=== PATIENT | female | born 1975 | race Caucasian/White ===

== ENCOUNTER 2018-07-24 13:22 | Emergency (ER) | payer MEDICAID, SELFPAY ==
[2018-07-24 13:30] VITALS: BP 115/74; PULSE 70; RESP 18; TEMP 36.7; O2SAT 98
--- NOTE | 2018-07-24 13:58 | ED.GENADUL_ITS ---
Discharge Plan Disposition Patient Disposition: HOME Condition: Good Discharge Details Chief Complaint: ChemExpose Clinical Impression: Impetigo, Atopic dermatitis Primary Care Provider: London Gordon ED Provider: Nathanael Peters Home Meds and New Rx's Prescriptions: New cephalexin [Keflex] 250 mg capsule 250 mg PO QID 7 Days Qty: 28 RF: 0 mupirocin calcium 2 % cream 1 applic TP TID Qty: 15 RF: 0 No Action multivitamin 1 EACH capsule 1 mg PO DAILY RF: 0 omega-3 fatty acids-fish oil [Fish Oil] 1 EACH capsule 2 cap PO DAILY RF: 0 nicotine [Nicoderm CQ] 1 EACH patch 24 hour 1 ea Transdermal PRN PRNRF: 0 hydroxyzine pamoate [Vistaril] 50 MG capsule 50 mg PO TID PRNQty: 20 RF: 0 hydrocortisone 30 GM cream 1 gm Topical BID PRNQty: 1 RF: 0 levonorgestrel [Mirena] 1 EACH intrauterine device 1 ea IU DIRECTED RF: 0 Discharge Instructions Instructions: Impetigo (ED), Dermatitis (ED) Additional Instructions: Please take the antibiotic as directed. Please hold off on the fluids soaks with essential oils for the time being. Please use the mupirocin cream 3-4 times daily, after improvement of your symptoms in 5-7 days please start using the steroid cream again. Please contact Dr. Schilling, for close dermatology follow-up. If you notice any redness, swelling, worsening of your pain, systemic symptoms of fever or chills, please return immediately for reevaluation. Referrals: London Gordon [Primary Care Provider] - Medical Decision Making This is a 42-year-old female with a long history of atopic dermatitis for the past few years with previous exacerbations, this most recent one has been going on for the last 5 months, patient has been soaking her affected digits in a combination of essential oils and warm water on a daily basis. She was prescribed hydrocortisone but only used this for 1 application. Over the last 24-48 hours she has noticed mild yellow crusting and yellow discharge. Physical exam demonstrates signs and symptoms concerning for mild impetigo, as a superinfection to her chronic atopic dermatitis. No signs of systemic infection, vital signs are stable, no fever. No signs of tendon involvement with no pain with passive flexion or extension. No evidence of abscess on exam. At this point will start the patient on mupirocin cream as well as Keflex for home use. After resolution of the infection-like symptoms we will recommend that she starts the steroid cream again. We will recommend dermatology follow-up with Dr. Schilling whom she has seen in the past. We discussed red flags which to return. I have extensively reviewed the treatment plan and discharge instructions with the patient. I have addressed all patient concerns at this time. The patient was made aware of what symptoms to monitor for that would warrant a return to the emergency department. Discussed the plan with the patient, they demonstrate verbal understanding and agreement with our assessment and plan at this time. HPI General Date/Time Provider Initiated Documentation: 07/24/18 13:25 . HPI Narrative: This is a 42-year-old female with no past medical history except for history of atopic dermatitis which she has had for years. She gets recurrent exacerbations on her right index finger and her left thumb every few years, she has been dealing with a recent exacerbation for the last few months, she was prescribed hydrocortisone by her PCP however she has not been using this and instead she has been using essential oils and soaks, she has been using tea tree oil, Rosie oil, doing daily soaks with these mixtures. She has not been noticing significant improvement, she did try using the steroid cream once for a single application but noticed no resolution of her symptoms. Over the last 24-48 hours she has noticed some mild yellow weeping and yellow crusting. Because of this she came in for further evaluation. She denies any systemic symptoms, any traveling of the rash of her hands or arms. She denies any bleeding,, fevers, chills, chest pain or shortness of breath. She denies any other contact allergens. She has no other complaints at this time. She denies any recent surgeries, she denies any pertinent family history. Related Data Home Medications Medication Instructions Recorded Confirmed multivitamin 1 mg PO DAILY 10/20/14 09/26/16 omega-3 fatty acids-fish oil [Fish 2 cap PO DAILY 10/20/14 09/26/16 Oil 1,000 mg Capsule] hydrocortisone 1 gm TOPICAL BID PRN #1 tube 04/06/15 09/26/16 hydroxyzine pamoate [Vistaril] 50 mg PO TID PRN #20 capsule 04/06/15 09/26/16 nicotine [Nicoderm Cq] 1 ea TRANSDERMAL PRN PRN 04/06/15 09/26/16 levonorgestrel [Mirena] 1 ea IU DIRECTED 06/18/16 09/26/16 cephalexin [Keflex] 250 mg PO QID 7 Days #28 cap 07/24/18 mupirocin calcium 1 applic TP TID #15 gm 07/24/18 Previous Rx's Medication Instructions Recorded hydrocortisone 1 gm TOPICAL BID PRN #1 tube 04/06/15 hydroxyzine pamoate [Vistaril] 50 mg PO TID PRN #20 capsule 04/06/15 cephalexin [Keflex] 250 mg PO QID 7 Days #28 cap 07/24/18 mupirocin calcium 1 applic TP TID #15 gm 07/24/18 Allergies Allergy/AdvReac Type Severity Reaction Status Date / Time No Known Allergies Allergy Unverified 09/26/16 19:59 General Stated Complaint: ChemExpose PIETRO: 4 Review of Systems Review of Systems All systems reviewed & are unremarkable except as noted in HPI and below PFSH Social History Smoking/Tobacco Use Status: Current every day Exam Narrative Exam Narrative: 1.Const: Well-nourished, Well-developed, appearing stated age 2.Eyes: PERRL, no conjunctival injection, and symmetrical lids. 3.ENT: Atraumatic external nose and ears. Moist MM. Neck: Symmetric, trachea midline, No thyromegaly. 4.CVS: +S1/S2, No murmurs or gallops. Peripheral pulses 2+ and equal in all extremities. Brisk capillary refill in all extremities. 5.RESP: Unlabored respiratory effort. Clear to auscultation bilaterally. No wheezes rales or rhonchi 6.GI: Soft, Nontender/Nondistended, No hepatosplenomegaly. No guarding or rebound. 7.MSK: Normocephalic/Atraumatic, Extremities w/o deformity or ttp No cyanosis or clubbing, Normal movement of all extremities 8.Skin: Patient demonstrates blotchy erythema, yellow crusting, minimal swelling over her index finger on the right hand, of the left head. No active bleeding. No significant pain with palpation. No evidence with passive extension or flexion of the fingers or thumbs. No purulent discharge, no fluctuance significant for an abscess. No other significant abnormalities peer 9.Neuro: cannon crewmember II-XII grossly intact. Sensation grossly intact, no focal neurologic deficits. 10.Psych: (AAO) x3. Appropriate mood and affect Course Vital Signs Temperature 36.7 C 07/24/18 13:30 Pulse 70 07/24/18 13:30 Respiratory Rate 18 07/24/18 13:30 Blood Pressure 115/74 07/24/18 13:30 Pulse Oximetry 98 07/24/18 13:30 Temperature 36.7 C 07/24/18 13:30 Temperature Source Temporal Artery Scan 07/24/18 13:30 Pulse 70 07/24/18 13:30 Respiratory Rate 18 07/24/18 13:30 Respiratory Effort 07/24/18 13:34 Respiratory Depth Normal 07/24/18 13:34 Respiratory Pattern Normal 07/24/18 13:34 Blood Pressure 115/74 07/24/18 13:30 Blood Pressure Position Sitting 07/24/18 13:30 Pulse Oximetry 98 07/24/18 13:30 Oxygen Delivery Method Room Air 07/24/18 13:30 Oxygen Flow Rate 0 07/24/18 13:30 Pain Level 5 07/24/18 13:30
[2018-07-24 14:06] VITALS: BP 133/80; PULSE 72; RESP 18; TEMP 36.8; O2SAT 99
--- NOTE | 2018-07-26 08:25 | PDOC.ERCMPRO ---
Care Management Progress Note 07/26-Dr. Peters requested assistance with a Dr. Schilling f/u (B[employer]ers Installer) as soon as possible. Called Dr. Schilling's office and spoke with Sarah. Sarah has scheduled Jovita for 945 this morning and has asked that the provider note be faxed to [phone] for which it was faxed. Called Jovita back to confirm and she stated she would be there at 0922.
--- NOTE | 2018-07-26 08:28 | CMPROGNOTE_ITS ---
Care Management Progress Note 07/26-Dr. Peters requested assistance with a Dr. Schilling f/u (Oil Dispatcher) as soon as possible. Called Dr. Schilling's office and spoke with Sarah. Sarah has scheduled Jovita for 945 this morning and has asked that the provider note be faxed to [phone] for which it was faxed. Called Jovita back to confirm and she stated she would be there at 0947.
== END 2018-07-24 14:07 | disposition home or self-care (01) ==
LOC: ER 14:12
PROVIDERS: Emergency Provider Student in an Organized Health Care Education/Training Program; PCP Internal Medicine
DX: L01.00 Impetigo, unspecified (principal); L20.9 Atopic dermatitis, unspecified
CPT/HCPCS: 99283

== ENCOUNTER 2018-12-01 11:15 | Emergency (ER) | payer MEDICAID, SELFPAY ==
[2018-12-01 11:20] VITALS: BP 126/73; PULSE 74; RESP 16; TEMP 36.8; O2SAT 99
--- NOTE | 2018-12-01 12:05 | DI.RAD_ITS ---
SYMPTOMS/DIAGNOSIS: COUGH PA AND LATERAL CHEST: Comparison 06/18/16. The heart is normal in size. The lungs are clear. The mediastinal structures and pleura appear intact. CONCLUSION: Normal chest.
--- NOTE | 2018-12-01 13:08 | ED.GENADUL_ITS ---
Discharge Plan Disposition Patient Disposition: HOME Condition: Stable Discharge Details Chief Complaint: RespSymp Clinical Impression: Cough Primary Care Provider: London Gordon ED Provider: Gerda Schrader Home Meds and New Rx's Prescriptions: Continued multivitamin 1 EACH capsule 1 mg PO DAILY RF: 0 omega-3 fatty acids-fish oil [Fish Oil] 1 EACH capsule 2 cap PO DAILY RF: 0 Mirena 1 EACH intrauterine device 1 ea IU DIRECTED RF: 0 mupirocin calcium 2 % cream 1 applic TP TID Qty: 15 RF: 0 Probiotic 100 billion cell Capsule 1 cap PO DAILY RF: 0 Discharge Instructions Instructions: Upper Respiratory Infection (ED), Acute Cough (ED) Additional Instructions: Please return immediately to the emergency department if you develop any new or worsening symptoms or if you become otherwise concerned. It is extremely important that you make an appointment to be seen in follow-up for this visit as soon as possible by your primary care doctor. Referrals: London Gordon [Primary Care Provider] - Discharge Data Discharge Date/Time-TO BE ENTERED AT DEPARTURE: 12/01/18 13:35 Medical Decision Making Jovita Dawson is a 43 yo woman with h/o kidney stones who presents emergency department with 1 week of productive cough, generalized body aches, nasal congestion. On exam patient is very well and nontoxic appearing. Eyes are clear. Concern for influenza versus pneumonia versus other viral respiratory infection. Exam/history is not consistent with meningitis, sepsis, toxic/metabolic process, other acute emergent life-threatening process. Plan for chest x-ray, flu swab. Flu swab and chest x-ray negative. Likely viral respiratory illness. No indication for further evaluation at this time. I had a lengthy discussion with the patient regarding home care, return to emergency department cautions, and importance of outpatient follow-up with PCP as soon as possible. She verbalized understanding plan was amenable. Medical Records Medical records reviewed: Yes I reviewed the patient's medical records. Imaging Data Radiologic Study: Attestation: I personally reviewed and interpreted this imaging study as follows: Radiologist's impression: PA AND LATERAL CHEST: Comparison 06/18/16. The heart is normal in size. The lungs are clear. The mediastinal structures and pleura appear intact. CONCLUSION: Normal chest. Lab Data Lab results reviewed: Yes I reviewed the patient's lab results. HPI General Mode of arrival: ambulatory . Date/Time Provider Initiated Documentation: 12/01/18 12:05 . Limitations to Documentation: no limitations . Information obtained by: patient, RN notes reviewed and old records reviewed . HPI Narrative: Jovita Dawson is a 43 y/o woman with h/o past presenting to the emergency department with cough. Patient reports that for the past week she has had cough productive of yellow sputum. She has also had intermittent generalized body aches, headaches, and nausea. Subjective fevers and nasal congestion. She has had no vomiting or diarrhea. Patient denies any current pain. She reports that she feels overall well and has been able to go about her usual activities, although has felt a little more rundown than usual in the past week. Has been eating and drinking as usual. Triage note states shortness of breath symptom, when questioned patient reports that she only feels more short of breath while coughing. Related Data Home Medications Medication Instructions Recorded Confirmed multivitamin 1 mg PO DAILY 10/20/14 12/13/18 omega-3 fatty acids-fish oil [Fish 2 cap PO DAILY 10/20/14 12/13/18 Oil] Mirena 1 ea IU DIRECTED 06/18/16 12/13/18 mupirocin calcium 1 applic TP TID #15 gm 07/24/18 12/13/18 Probiotic 1 cap PO DAILY 12/01/18 12/13/18 Previous Rx's Medication Instructions Recorded mupirocin calcium 1 applic TP TID #15 gm 07/24/18 Allergies Allergy/AdvReac Type Severity Reaction Status Date / Time No Known Allergies Allergy Unverified 12/13/18 19:29 General Stated Complaint: RespSymp PIETRO: 3 Review of Systems Review of Systems Constitutional: Reports subjective fevers Eyes: denies eye pain ENT: denies facial pain, dental pain, sore throat, reports nasal congestion Cardiovascular: denies chest pain, edema Respiratory: denies SOB, reports cough GI: denies abdominal pain, vomiting, diarrhea, reports nausea : denies flank pain MSK: denies back pain, neck pain, reports generalized body aches Skin: denies rash Neuro: denies numbness, weakness, reports intermittent headache not currently occurring PFSH Surgical History History of bunionectomy (Acute) Social History Smoking/Tobacco Use Status: Current every day Tobacco Type: cigarettes Smoking cigarettes per day: 10 Alcohol Intake: current Alcohol Intake frequency: a few times a month Drug use: Never Substance use type: does not use Do you feel safe at home: Yes Do you feel safe in your relationship?: Yes Exam Narrative Exam Narrative: Constitutional: well and [id number], pleasant, conversing normally HENT: head atraumatic/normocephalic/normal inspection, mucous membranes moist Eyes: conjunctiva normal, sclera normal, pupils 3mm b/l Neck: no stridor, normal ROM, trachea midline Chest: normal inspection Resp: normal work of breathing, LCTAB Cardio: normal rate, normal rhythm, no murmur appreciated Back: normal inspection, no rash Skin: warm, dry, normal color, no rash Neuro: alert, not altered, grossly non-focal, normal tone Ext: no edema, no posterior calf tenderness to palpation Psych: normal mood, normal affect, normal behavior Course Vital Signs Temperature 36.8 C 12/01/18 11:20 Pulse 74 12/01/18 11:20 Respiratory Rate 16 12/01/18 11:20 Blood Pressure 126/73 12/01/18 11:20 Pulse Oximetry 99 12/01/18 11:20 Temperature 36.8 C 12/01/18 11:20 Temperature Source Tympanic 12/01/18 11:20 Pulse 74 12/01/18 11:20 Respiratory Rate 16 12/01/18 11:20 Respiratory Effort Non-Labored 12/01/18 11:26 Respiratory Depth Normal 12/01/18 11:26 Blood Pressure 126/73 12/01/18 11:20 Blood Pressure Position Sitting 12/01/18 11:20 Pulse Oximetry 99 12/01/18 11:20 Oxygen Delivery Method Room Air 12/01/18 11:20 Oxygen Flow Rate 0 12/01/18 11:20 Pain Level 0 12/01/18 11:20 Lab/Test Results Lab/Test Results: 12/01/18 12:35 Nasopharynx Influenza Types A,B Antigen - Final
== END 2018-12-01 13:35 | disposition home or self-care (01) ==
PROVIDERS: Emergency Provider Student in an Organized Health Care Education/Training Program; PCP Internal Medicine
DX: J06.9 Acute upper respiratory infection, unspecified (principal); R05 Cough; F17.210 Nicotine dependence, cigarettes, uncomplicated
CPT/HCPCS: 87449; 99283; 71046

== ENCOUNTER 2018-12-13 19:14 | Emergency (ER) | payer MEDICAID, SELFPAY ==
[2018-12-13 19:24] VITALS: BP 111/70; PULSE 87; RESP 16; TEMP 36.8; O2SAT 98
[2018-12-13 19:42] LABS: Bilirubin Negative (Negative); Blood Large (Negative); Clarity Clear; Glucose Negative (Negative); Ketones Negative (Negative); Leukocyte Esterase Negative (Negative); Nitrite Negative (Negative); Urobilinogen 0.2 EU/dL (Up TO 0.2)
[2018-12-13 19:54] LABS: Bacteria Few HPF (Negative); C & S Indicated? No; Casts Negative LPF (Negative); Crystals Negative HPF (Negative); Epithelial Cells Rare HPF (Negative); Mucus Negative (Negative); Other Cells Negative (Negative); RBC >50 (0-2); WBC 0-2 HPF (0-5)
--- NOTE | 2018-12-13 19:57 | W.ED.GENAD ---
Discharge Plan Disposition Patient Disposition: OTHER Discharge Details Chief Complaint: Urinary Clinical Impression: Patient left without being seen Primary Care Provider: London Gordon ED Provider: Lorenzo Brown Home Meds and New Rx's Prescriptions: No Action multivitamin 1 EACH capsule 1 mg PO DAILY RF: 0 omega-3 fatty acids-fish oil [Fish Oil] 1 EACH capsule 2 cap PO DAILY RF: 0 Mirena 1 EACH intrauterine device 1 ea IU DIRECTED RF: 0 mupirocin calcium 2 % cream 1 applic TP TID Qty: 15 RF: 0 Probiotic 100 billion cell Capsule 1 cap PO DAILY RF: 0 Medical Decision Making Patient had urinalysis ordered as part of triage process. No evidence of infection. Patient has stated to staff that she felt a kidney stone in the past and she wished to leave prior to being evaluated. Lab Data Lab results reviewed: Yes I reviewed the patient's lab results. Laboratory Results - last 24 hr 12/13/18 19:35 Urine Color Yellow Urine Clarity Clear Urine pH 6.0 Ur Specific [place] 1.010 Urine Protein Negative Urine Ketones Negative Urine Blood Large H Urine Nitrite Negative Urine Bilirubin Negative Urine Urobilinogen 0.2 Ur Leukocyte Esterase Negative Urine RBC >50 H Urine WBC 0-2 Ur Epithelial Cells Rare Urine Crystals Negative Urine Bacteria Few Urine Casts Negative Urine Mucus Negative Urine Other Negative Ur Culture Indicated? No Urine Glucose Negative HPI General Date/Time Provider Initiated Documentation: 12/13/18 19:30. Related Data Home Medications Medication Instructions Recorded Confirmed multivitamin 1 mg PO DAILY 10/20/14 12/13/18 omega-3 fatty acids-fish oil [Fish 2 cap PO DAILY 10/20/14 12/13/18 Oil] Mirena 1 ea IU DIRECTED 06/18/16 12/13/18 mupirocin calcium 1 applic TP TID #15 gm 07/24/18 12/13/18 Probiotic 1 cap PO DAILY 12/01/18 12/13/18 Previous Rx's Medication Instructions Recorded mupirocin calcium 1 applic TP TID #15 gm 07/24/18 Allergies Allergy/AdvReac Type Severity Reaction Status Date / Time No Known Allergies Allergy Unverified 12/13/18 19:29 General Stated Complaint: Urinary PIETRO: 3 PFSH Surgical History History of bunionectomy (Acute) Social History Smoking/Tobacco Use Status: Current every day Tobacco Type: cigarettes Smoking cigarettes per day: 10 Alcohol Intake: current Alcohol Intake frequency: a few times a month Drug use: Never Substance use type: does not use Do you feel safe at home: Yes Do you feel safe in your relationship?: Yes Course Vital Signs Temperature 36.8 C 12/13/18 19:24 Pulse 87 12/13/18 19:24 Respiratory Rate 16 12/13/18 19:24 Blood Pressure 111/70 12/13/18 19:24 Pulse Oximetry 98 12/13/18 19:24 Temperature 36.8 C 12/13/18 19:24 Temperature Source Skin 12/13/18 19:24 Pulse 87 12/13/18 19:24 Respiratory Rate 16 12/13/18 19:24 Respiratory Effort Non-Labored 12/13/18 19:29 Blood Pressure 111/70 12/13/18 19:24 Blood Pressure Position Standing 12/13/18 19:24 Pulse Oximetry 98 12/13/18 19:24 Oxygen Delivery Method Room Air 12/13/18 19:24 Oxygen Flow Rate 0 12/13/18 19:24 Pain Level 5 12/13/18 19:24 Lab/Test Results Lab/Test Results: Laboratory Tests Range/Units 12/13/18 19:35 Urine Color (Yellow) Yellow Urine Clarity Clear Urine pH (5-8) 6.0 Ur Specific [place] (1.005-1.025) 1.010 Urine Protein (Negative) mg/dL Negative Urine Ketones (Negative) mg/dL Negative Urine Blood (Negative) Large H Urine Nitrite (Negative) Negative Urine Bilirubin (Negative) Negative Urine Urobilinogen (Up TO 0.2) EU/dL 0.2 Ur Leukocyte Esterase (Negative) Negative Urine RBC (0-2) >50 H Urine WBC (0-5) HPF 0-2 Ur Epithelial Cells (Negative) HPF Rare Urine Crystals (Negative) HPF Negative Urine Bacteria (Negative) HPF Few Urine Casts (Negative) LPF Negative Urine Mucus (Negative) Negative Urine Other (Negative) Negative Ur Culture Indicated? No Urine Glucose (Negative) mg/dL Negative
== END 2018-12-13 19:50 | disposition other institution (70) ==
PROVIDERS: Emergency Provider Emergency Medicine; PCP Internal Medicine
DX: Z53.21 Procedure and treatment not carried out due to patient leaving prior to being seen by health care provider (principal)
CPT/HCPCS: 81003; 81015

== ENCOUNTER 2019-04-02 19:14 | Emergency (ER) | payer MEDICAID, SELFPAY ==
[2019-04-02 19:18] VITALS: BP 111/68; PULSE 89; RESP 20; TEMP 36.6; O2SAT 96
--- NOTE | 2019-04-02 19:30 | W.ED.GENAD ---
Discharge Plan Disposition Patient Disposition: HOME Condition: Stable Discharge Details Chief Complaint: Sorethroat Clinical Impression: Pharyngitis, Viral URI Primary Care Provider: London Gordon ED Provider: Kinga Ovalle Home Meds and New Rx's Prescriptions: Continued multivitamin 1 EACH capsule 1 mg PO DAILY RF: 0 omega-3 fatty acids-fish oil [Fish Oil] 1 EACH capsule 2 cap PO DAILY RF: 0 Mirena 1 EACH intrauterine device 1 ea IU DIRECTED RF: 0 mupirocin calcium 2 % cream 1 applic TP TID Qty: 15 RF: 0 Probiotic 100 billion cell Capsule 1 cap PO DAILY RF: 0 Discharge Instructions Instructions: Pharyngitis (ED), Upper Respiratory Infection (ED) Additional Instructions: Drink plenty of fluids and get plenty of rest. Gargle with salt water several times daily. You can also use cough drops and Chloraseptic throat spray to help with pain. Alternate Tylenol and Motrin as needed directed for pain. Follow-up with your primary care doctor next week for reevaluation as needed. Return to the emergency department if you develop any worsening or new concerning symptoms. Discharge Data Discharge Date/Time-TO BE ENTERED AT DEPARTURE: 04/02/19 19:49 Discharge Physician: Kinga Ovalle Medical Decision Making 43-year-old female who presents the ED with complaint of sore throat for the past 5 days. Recent sick contact with strep. States she mainly came here to be tested for strep. Vitals within normal limits. Patient appears nontoxic. Normal ENT exam. Normal oropharynx. No peritonsillar abscess. Uvula midline. No trismus, drooling, lymphadenopathy. Rapid strep negative. Presentation appears consistent with viral pharyngitis. Also discussed with patient that sore throat can also be the result of postnasal drip from seasonal allergies. Discussed that if her symptoms do not improve or worsen, to follow-up with her primary care doctor or return to the emergency department HPI General Mode of arrival: ambulatory. Date/Time Provider Initiated Documentation: 04/02/19 19:30. Limitations to Documentation: no limitations. Information obtained by: patient. HPI Narrative: Patient is a 43-year-old female who presents with sore throat for the past 5 days. She states she also feels that she has swollen glands which hurt with swallowing. She states she has a coworker who was recently diagnosed with strep throat and she wanted to be checked for this. She admits to occasional cough sometimes productive of green sputum. She denies any fever. She states she has been eating and drinking normally. She denies any headache, neck pain, chest pain, shortness of breath, abdominal pain, vomiting or diarrhea. Related Data Home Medications Medication Instructions Recorded Confirmed multivitamin 1 mg PO DAILY 10/20/14 12/13/18 omega-3 fatty acids-fish oil [Fish 2 cap PO DAILY 10/20/14 12/13/18 Oil] Mirena 1 ea IU DIRECTED 06/18/16 12/13/18 mupirocin calcium 1 applic TP TID #15 gm 07/24/18 12/13/18 Probiotic 1 cap PO DAILY 12/01/18 12/13/18 Previous Rx's Medication Instructions Recorded mupirocin calcium 1 applic TP TID #15 gm 07/24/18 Allergies Allergy/AdvReac Type Severity Reaction Status Date / Time No Known Allergies Allergy Unverified 04/02/19 19:22 General Stated Complaint: Sorethroat PIETRO: 4 Review of Systems Review of Systems All systems reviewed & are unremarkable except as noted in HPI and below Constitutional Reports as per HPI, Denies chills and Denies fever(s) Eyes Denies blurry vision ENT Denies dizziness, Reports sore throat and Denies throat swelling Cardiovascular Denies chest pain and Denies dyspnea Respiratory Reports cough and Denies dyspnea Gastrointestinal Denies abdominal pain, Denies diarrhea and Denies vomiting Genitourinary Denies hematuria and Denies dysuria Musculoskeletal Denies back pain and Denies numbness Integumentary/Breasts Denies lesions and Denies rash Neurologic Denies dizziness, Denies focal weakness and Denies numbness Allergic/Immunologic Denies throat swelling [facility] Medical History Degenerative disc disease, cervical (Acute) Kidney stones (Chronic) Surgical History History of bilateral tubal ligation (Acute) History of bunionectomy (Acute) Social History Smoking/Tobacco Use Status: Current every day Tobacco Type: cigarettes Alcohol Intake: current Alcohol Intake frequency: a few times a month Drug use: Never Substance use type: does not use Do you feel safe at home: Yes Do you feel safe in your relationship?: Yes Exam Const General: cooperative and healthy appearing Orientation: alert and awake HENCO Head: normal to inspection Ears: hearing grossly normal bilaterally, external ears normal and TM's normal bilaterally General nose exam: external nose normal Face and sinus: normal facial exam Mouth: oral mucosae normal Teeth and gingiva: dentition normal Throat: posterior oropharynx normal Eyes General: appearance normal, both eyes and all related structures Eyelids: eyelids normal Pupils: PERRL EOM: EOM intact bilaterally Neck Neck: normal visual inspection Lymphatic: no lymphadenopathy noted Chest Chest: normal inspection of the chest Resp Effort & Inspection: normal respiratory effort and able to speak in complete sentences Auscultation: clear to auscultation bilaterally Cardio Rate: regular rate Rhythm: regular rhythm GI Inspection: normal to inspection Palpation: soft, not firm, no guarding, no hepatosplenomegaly, no masses and nontender Auscultation: normal bowel sounds Skin General skin exam: no rashes or lesions noted Neuro General: alert and awake Cognition: normal cognition Speech: speech normal Gait: normal gait Motor: muscle tone normal throughout Sensory Exam: no sensory deficits noted Extrem General: normal to inspection, full ROM and normal capillary refill Psych Appearance: grossly normal Mental Status: mental status grossly normal Speech and Movement: speech and movement normal Affect: normal affect Thought Process: normal Course Vital Signs Temperature 97.9 F 04/02/19 19:18 Pulse 89 04/02/19 19:18 Respiratory Rate 20 04/02/19 19:18 Blood Pressure 111/68 04/02/19 19:18 Pulse Oximetry 96 04/02/19 19:18 Temperature 97.9 F 04/02/19 19:18 Temperature Source Temporal Artery Scan 04/02/19 19:18 Pulse 89 04/02/19 19:18 Respiratory Rate 20 04/02/19 19:18 Respiratory Effort Non-Labored 04/02/19 19:18 Blood Pressure 111/68 04/02/19 19:18 Pulse Oximetry 96 04/02/19 19:18 Oxygen Delivery Method Room Air 04/02/19 19:18 Oxygen Flow Rate 0 04/02/19 19:18 Pain Level 7 07/06/19 19:18 Comment 04/02/19 19:18
== END 2019-04-02 19:49 | disposition home or self-care (01) ==
PROVIDERS: Emergency Provider Physician Assistant; PCP Internal Medicine
DX: J06.9 Acute upper respiratory infection, unspecified (principal); J02.9 Acute pharyngitis, unspecified
CPT/HCPCS: 87880; 99282; 87081

== ENCOUNTER 2022-05-06 19:59 | Emergency (ER) | payer BC, SELFPAY ==
[2022-05-06 20:39] VITALS: BP 91/57; PULSE 68; RESP 16; TEMP 36.9; O2SAT 98
--- NOTE | 2022-05-06 21:16 | ED.GENADUL_ITS ---
Discharge Plan Disposition Patient Disposition: HOME Condition: Stable Discharge Details Clinical Impression: Laceration of right middle finger, Laceration of right ring finger Primary Care Provider: Barb Escalera ED Provider: Slime Wright Home Meds and New Rx's Prescriptions: No Action Mirena 1 EACH intrauterine device 1 ea IU DIRECTED Discharge Instructions Instructions: Finger Laceration (ED), Skin Adhesive Care (ED) Additional Instructions: Keep clean and dry. Do not pick at the tissue adhesive. It will start to slough off on its own in approximately 6 days. You may wash under running soap and water. You may keep covered with Band-Aids when doing activities allow to air dry at least 1 to 2 hours a day. You were given a tetanus booster today Please return to the ER for any signs of infection, red streaks or swelling or any concerns. Follow up with primary care provider in 3-5 days. Return to ED sooner if any worsening or concerns. Increase oral fluids. Please take Tylenol or Ibuprofen with food every 4-6 hours as needed for pain and swelling. Referrals: Barb Escalera [Primary Care Provider] - Return if symptoms worsen Discharge Data Discharge Date/Time-TO BE ENTERED AT DEPARTURE: 05/06/22 22:23 Medical Decision Making Laceration was repaired with Dermabond or tissue adhesive. 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 Tdap ordered unknown last tetanus vaccination. I did discuss strict return instructions and red flags with patien t and home care verbalized understanding. HPI General Mode of arrival: ambulatory . Date/Time Provider Initiated Documentation: 05/06/22 20:38 . Limitations to Documentation: no limitations . Information obtained by: patient, RN notes reviewed and old records reviewed . HPI Narrative: 46-year-old female presents to the ER with chief complaint of third and fourth palmar surface relations which occurred proximately 2 hours prior to arrival while opening a metal [employer] feeder. Patient has approximately half centimeter lacerations to the distal pad of her 34th finger. Third finger has a flap for 3 years linear superficial laceration. Bleeding is controlled upon in itial presentation. Patient washed lacerations with warm water and applied pressure prior to arrival. She does not know when her last tetanus vaccination was. She has full range of motion distal sensation intact to both fingers. Related Data Home Medications Medication Instructions Recorded Confirmed levonorgestrel 20 mcg/24 hours (7 1 ea IU DIRECTED 06/18/16 05/06/22 yrs) 52 mg intrauterine device (Mirena) Allergies Allergy/AdvReac Type Severity Reaction Status Date / Time No Known Allergies Allergy Unverified 05/06/22 20:43 General Stated Complaint: Laceration PIETRO: 4 Review of Systems Integumentary/Breasts Skin/Breast: Reports as per HPI and Reports wounds (3rd and 4th fingers) PFSH All Active Problems (Updated 05/06/22 @ 21:27 by Slime Wright NP) Laceration of right middle finger (Acute) Laceration of right ring finger (Acute) Medical History (Updated 05/06/22 @ 21:27 by Slime Wright NP) Degenerative disc disease, cervical Kidney stones Surgical History History of bilateral tubal ligation History of bunionectomy Social History Smoking/Tobacco Use Status: Current every day Tobacco Type: cigarettes Smoking risk assessment performed?: Yes Alcohol Intake: current Alcohol Intake frequency: a few times a week Drug use: Never Substance use type: does not use Do you feel safe at home: Yes Do you feel safe in your relationship?: Yes Exam Extrem Hand/finger images: 1. 0.5 cm laceration flap-like, unable to raise the flap bleeding controlled. 2. Superficial laceration approximately 0.2 cm just down to the dermis. Bleeding also controlled. Course Vital Signs Vital signs: Vital Signs Temperature 36.9 C 05/06/22 20:39 Pulse 68 05/06/22 20:39 Respiratory Rate 16 05/06/22 20:39 Blood Pressure 91/57 L 05/06/22 20:39 Pulse Oximetry 98 05/06/22 20:39 Temperature 36.9 C 05/06/22 20:39 Temperature Source Temporal Artery Scan 05/06/22 20:39 Pulse 68 05/06/22 20:39 Respiratory Rate 16 05/06/22 20:39 Respiratory Effort 05/06/22 20:39 Blood Pressure 91/57 L 05/06/22 20:39 Blood Pressure Position Sitting 05/06/22 20:39 Pulse Oximetry 98 05/06/22 20:39 Oxygen Delivery Method Room Air 05/06/22 20:39 Oxygen Flow Rate 0 05/06/22 20:39 Pain Level 6 05/06/22 20:39
== END 2022-05-06 22:23 | disposition home or self-care (01) ==
PROVIDERS: Emergency Provider Registered Nurse Emergency; PCP Family Medicine
DX: S61.212A Laceration without foreign body of right middle finger without damage to nail, initial encounter (principal); S61.214A Laceration without foreign body of right ring finger without damage to nail, initial encounter; Z23 Encounter for immunization; W26.8XXA Contact with other sharp object(s), not elsewhere classified, initial encounter; F17.210 Nicotine dependence, cigarettes, uncomplicated
CPT/HCPCS: 12001; 90471; 99281; 99282

== ENCOUNTER 2024-12-27 21:03 | Outpatient (REF) | payer BC, SELFPAY ==
[2024-12-27 23:12] LABS: ALT 33 U/L (14-59); AST 20 U/L (15-37); Albumin 4.2 g/dL (3.4-5.0); Alkaline Phosphatase 66 U/L (46-116); Anion Gap 6.7 mmol/L (3-11); BUN 13 mg/dL (7-18); Bilirubin, Total 0.3 mg/dL (0.2-1.0); CO2 29.3 mmol/L (21.0-32.0); CREATININE 0.8 mg/dL (0.55-1.02); Calcium 9.4 mg/dL (8.5-10.1); Calculated LDL 142 mg/dL (<100); Chloride 105 mmol/L (98-107); Cholesterol 223 mg/dL (<200); Estimated GFR 90.27 (mL/min/1.73m2); Glucose 81 mg/dL (74-106); HDL Cholesterol 62 mg/dL (>or=50); Potassium 4.5 mmol/L (3.5-5.1); Sodium 141 mmol/L (136-145); TSH (W/Ref FT4) 2.06 uIU/mL (0.36-3.74); Total Protein 7.1 g/dL (6.4-8.2); Triglyceride 97 mg/dL (<150); Vitamin D 25 Total 30 ng/mL (30-100)
[2024-12-29 09:57] LABS: HIV-1/2 Ag & Ab Screen Negative (Negative)
[2024-12-29 10:30] LABS: Hepatitis C Ab w Rflx HCV PCR Negative (Negative)
== END 2024-12-27 21:04 | disposition home or self-care (01) ==
LOC: NCHCN 21:03
PROVIDERS: PCP Family Medicine; Visit Provider Family Medicine
DX: E78.5 Hyperlipidemia, unspecified (principal); R53.83 Other fatigue; Z11.59 Encounter for screening for other viral diseases; Z11.4 Encounter for screening for human immunodeficiency virus [HIV]
CPT/HCPCS: 80053; 80061; 82306; 86803; 87389; 84443

== ENCOUNTER 2025-01-26 15:26 | Outpatient (REF) | payer BC, SELFPAY ==
--- NOTE | 2025-01-26 12:30 | SKI_PTH ---
PATIENT: Jovita Dawson LOC: [facility] U#:[id number] AGE/SX: 49/F ROOM: RE01/26/[address]: Paula Hernandez : 1975 BED: DIS: 01/26/2025 SPEC #: [id number] RECD: 01/26/25 17:36 STATUS: RONNELL REDamaris #: [id number] MCKENZIE: 01/26/25 12:[address]: Paula Hernandez DEPT: Surgical Specimen RECD BY: Mag White ENTERED: 01/26/25 17:37 SP TYPE: VERÓNICA MONTES DR: Barb Escalera Tissues: 1 - SKIN BIOPSY(SHAVE/PUNCH) Procedures: SKIN LEVEL 4 Comments: [id number]
== END 2025-01-26 15:27 | disposition home or self-care (01) ==
LOC: NCHCN 15:26
PROVIDERS: PCP Family Medicine; Visit Provider Family Medicine
DX: D22.9 Melanocytic nevi, unspecified (principal)
CPT/HCPCS: 88305